=== PATIENT | female | born 2000 | race Two or more races ===

== ENCOUNTER 2022-01-02 19:54 | Observation (INO) | payer MEDICAID, OTHER ==
[~2022-01-02] VITALS: Ht 154.9 cm; Wt 86.2 kg
[2022-01-02 20:49] LABS: Urine Bacteria FEW /hpf (None Seen); Urine Blood Negative /uL (Negative); Urine Mucus FEW (None Seen); Urine Specific Gravity 1.018 (1.001-1.035); Urine WBC 5 /hpf (0 - 5)
[2022-01-02 21:04] LABS: Alcohol, Urine < 3.0 mg/dL (0-10); Amphetamine Screen, Urine NEGATIVE (NEGATIVE); Barbiturate Scree,Urine NEGATIVE (NEGATIVE); Benzodiazephine Screen, Urine NEGATIVE (NEGATIVE); Cannabinoid Screen, Urine NEGATIVE (NEGATIVE); Cocaine Screen, Urine NEGATIVE (NEGATIVE); Opiate Scree,Urine NEGATIVE (NEGATIVE); Phencyclidine Screen, Urine NEGATIVE (NEGATIVE)
[2022-01-02] MEDS ORDERED: PREN1TAB71 OR (21:06)
[2022-01-02] MEDS ORDERED: PHISODERM TOP SOLN 240ML BTL TOP PRN (22:15)
[2022-01-02] MEDS ORDERED: WITCH HAZEL-GLYCERIN PAD TOP PRN (22:15)
[2022-01-02] MEDS ORDERED: PROMETHAZINE HCL 25 MG/ML 1ML IV PRN (22:15)
[2022-01-02] MEDS ORDERED: LACTATED RINGER'S 1,000 ML IV SCH (22:15)
[2022-01-02] MEDS ORDERED: LIDOCAINE 2%HCL (LOCAL ANESTH.) INJ 10ml MDV IJ PRN (22:15)
[2022-01-02] MEDS ORDERED: miSOPROStol 50 MCG per PRE-CUT 1/2 TAB PO PRN (22:15)
[2022-01-02] MEDS ORDERED: BUTORPHANOL TARTRATE 2 MG/1 ML VIAL IV PRN (22:15)
[2022-01-02] MEDS ORDERED: DERMOPLAST 60ML BOTTLE TOP PRN (22:15)
[2022-01-02] MEDS ORDERED: LACT. RINGERS/OXYTOCIN 20UNITS 500 ML IV ONE ×2 (22:30→23:00)
== END 2022-01-02 23:02 | disposition home or self-care (01) ==
LOC: UNDOADMOB 19:54 → LDRP 19:54 → INTOOBSV 22:15 → OBSVTOIN 22:15 → LDRP 22:47
PROVIDERS: ADMIT Obstetrics & Gynecology Obstetrics; ATTEND Obstetrics & Gynecology Obstetrics
DX: O36.4XX0 Maternal care for intrauterine death, not applicable or unspecified (principal); O36.8130 Decreased fetal movements, third trimester, not applicable or unspecified; Z3A.29 29 weeks gestation of pregnancy; Z79.899 Other long term (current) drug therapy
CPT/HCPCS: 59025; 76805; 80307; 81001; 81002; 94760; G0378